=== PATIENT | male | born 1980 | race Caucasian/White ===

== ENCOUNTER 2017-11-25 19:50 | Inpatient (IN) | payer SELFPAY ==
[~2017-11-25 19:50] MED LIST: METHADONE HCL 10 MG TABLET (FOR DETOX USE ONLY) PO ONE
[2017-11-25] MEDS ORDERED: MELATONIN 5 MG TABLETS PO PRN (22:00)
[2017-11-25 22:42] VITALS: BMI 22.3
[2017-11-25] MEDS ORDERED: METHADONE HCL 10 MG TABLET (FOR DETOX USE ONLY) PO ONE ×2 (23:00→23:53)
--- NOTE | 2017-11-25 23:13 | HP ---
COWS - Scale Resting Pulse: 2= [place] 101-120 Sweatin=Flushed/Facial Moisture Restless Observation: 1= Difficult to Sit Still Pupil Size: 1= Pupils >than Normal Bone or Joint Aches: 2= Severe Diffuse Aches Runny Nose/ Eye Tearin= None GI Upset > 30mins: 3= Vomiting/Diarrhea (vomiting x 2, diarrhea x 2) Tremor Observation: 2= Slight Tremor Visible Yawning Observation: 0= None Anxiety or Irritability: 2=Irritable/Anxious Goose Flesh Skin: 0=Smooth Skin COWS Score: 15 Admission [facility] Chief Complaint: Opioid withdrawal symptoms Allergies/Adverse Reactions: Allergies Allergy/AdvReac Type Severity Reaction Status Date / Time No Known Allergies Allergy Verified 11/26/17 01:47 History of Present Illness: 37 years old male with eight years history of heroin and cocaine dependence is seeking admission to detox. Patient has been in previous detox at [facility] which he did not complete. Reports 6 months of sobriety when he was in group home. He has medical history of dermatitis and dehydration. Denies suicidal ideation at this time. Exam Limitations: No Limitations - Ebola screening Have you traveled outside of the country in the last 21 days: No Have you had contact with anyone from an Ebola affected area: No Have you been sick,other than usual withdrawal symptoms: No Do you have a fever: No - Review of Systems Constitutional: Chills, Loss of Appetite, Malaise, Night Sweats, Changes in sleep EENT: reports: Blurred Vision Respiratory: reports: No Symptoms reported Cardiac: reports: No Symptoms Reported GI: reports: Diarrhea, Nausea, Poor Appetite, Poor Fluid Intake, Vomiting, Abdominal cramping : reports: No Symptoms Reported Musculoskeletal: reports: Back Pain Integumentary: reports: Flushing Neuro: reports: Tingling Endocrine: reports: No Symptoms Reported Hematology: reports: No Symptoms Reported Psychiatric: reports: Agitated, Anxious Other Systems: Reviewed and Negative Patient History - Patient Medical History Hx Anemia: No Hx Asthma: No Hx Chronic Obstructive Pulmonary Disease (COPD): No Hx Cancer: No Hx Cardiac Disorders: No Hx Congestive Heart Failure: No Hx Hypertension: No Hx Hypercholesterolemia: No Hx Pacemaker: No HX Cerebrovascular Accident: No Hx Seizures: No Hx Dementia: No Hx Diabetes: No Hx Gastrointestinal Disorders: No Hx Liver Disease: No Hx Genitourinary Disorders: No Hx Sexually Transmitted Disorders: No Hx Renal Disease (ESRD): No Hx Thyroid Disease: No Hx Human Immunodeficiency Virus (HIV): No Hx Hepatitis C: No Hx Depression: Yes (Not on medication) Hx Suicide Attempt: No (Denies suicidal ideation at this time) Hx Bipolar Disorder: No Hx Schizophrenia: No Other Medical History: Dermatitis - Not on medication - Patient Surgical History Past Surgical History: No Hx Neurologic Surgery: No Hx Cataract Extraction: No Hx Cardiac Surgery: No Hx Lung Surgery: No Hx Abdominal Surgery: No Hx Appendectomy: No Hx Cholecystectomy: No Hx Genitourinary Surgery: No Hx Orthopedic Surgery: No - PPD History Previous Implant?: Yes Documented Results: Negative w/o proof Implanted On Prior [facility] Admission?: Yes Date: 05/22/16 PPD to be Administered?: Yes - Reproductive History Patient is a Female of Child Bearing Age (11 -55 yrs old): No (MALE) - Smoking Cessation Smoking history: Current every day smoker Have you smoked in the past 12 months: Yes Aproximately how many cigarettes per day: 20 Hx Chewing Tobacco Use: No Initiated information on smoking cessation: Yes 'Breaking Loose' booklet given: 11/25/17 - Substance & Tx. History Hx Alcohol Use: No Hx Substance Use: Yes Substance Use Type: Cocaine, Heroin Hx Substance Use Treatment: Yes ([facility]) - Substances Abused Heroin Route: Injection Frequency: Daily Amount used: 1 GRAM Age of first use: 30 Date of Last Use: 11/25/17 Cocaine Route: Smoking Frequency: 3-6 times per week Amount used: $40 Age of first use: 14 Date of Last Use: 11/24/17 Family Disease History - Family Disease History Family History: Denies Admission Physical Exam [facility] - Vital Signs Vital Signs: Vital Signs - 24 hr 11/25/17 22:40 Temperature 96.5 F L Pulse Rate 120 H Respiratory 18 Rate Blood Pressure 134/80 - Physical General Appearance: Yes: Moderate Distress, Tremorous, Irritable, Sweating, Anxious HEENTM: Yes: EOMI, Normal ENT Inspection, Normal Voice, ELISA Respiratory: Yes: Lungs Clear, Normal Breath Sounds, No Respiratory Distress Neck: Yes: Supple Breast: Yes: Breast Exam Deferred Cardiology: Yes: Regular Rhythm, Regular Rate, Tachycardia Abdominal: Yes: Normal Bowel Sounds, Soft Genitourinary: Yes: Within Normal Limits Back: Yes: Normal Inspection Neurological: Yes: Alert, Normal Mood/Affect Integumentary: Yes: Dry Lymphatic: Yes: Within Normal Limits - Diagnostic (1) Dehydration Current Visit: Yes Status: Chronic (2) Opioid dependence with withdrawal Current Visit: Yes Status: Chronic (3) Cocaine dependence Current Visit: Yes Status: Chronic Qualifiers: Substance use status: uncomplicated Qualified Code(s): F14.20 - Cocaine dependence, uncomplicated (4) Marijuana dependence Current Visit: Yes Status: Chronic (5) Nicotine dependence Current Visit: Yes Status: Chronic Qualifiers: Nicotine product type: cigarettes Substance use status: uncomplicated Qualified Code(s): F17.210 - Nicotine dependence, cigarettes, uncomplicated (6) Dermatitis Current Visit: Yes Status: Chronic Cleared for Admission S - Detox or Rehab [facility] Level of Care: Medically Managed Detox Regimen/Protocol: Methadone [facility] Breath Alcohol Content Breath Alcohol Content: 0 Urine Drug Screen - Results Drug Screen Negative: No Urine Drug Screen Results: OLLIE-Cocaine, OPI-Opiates
[2017-11-25] MEDS ORDERED: MENTHOL/PHENOL 1 EACH UD MM PRN (23:53)
[2017-11-25] MEDS ORDERED: MAGNESIUM HYDROX 2400MG/30ML ORAL SUSPENSION 30 ML CUP PO PRN (23:53)
[2017-11-25] MEDS ORDERED: ACETAMINOPHEN 325 MG TABLET (FP) PO PRN (23:53)
[2017-11-25] MEDS ORDERED: LOPERAMIDE HCL 2 MG CAPSULE PO PRN (23:53)
[2017-11-25] MEDS ORDERED: guaiFENesin/D-METHORPHAN HB 10 ML UNIT-DOSE CUPS PO PRN (23:53)
[2017-11-25] MEDS ORDERED: MAG HYDROX/AL HYDROX/SIMETH 30 ML UNIT-DOSE CUP PO PRN (23:53)
[2017-11-25] MEDS ORDERED: NICOTINE POLACRILEX 2 MG GUM BC PRN (23:53)
[2017-11-25] MEDS ORDERED: MAGNESIUM CITRATE 300 ML BOTTLE PO PRN (23:53)
[2017-11-25] MEDS ORDERED: IBUPROFEN 400 MG TABLET (FP) PO PRN (23:53)
[2017-11-25] MEDS ORDERED: P-EPHED 60MG/TRIPROLIDI 2.5MG TABLET PO PRN (23:53)
[2017-11-26] MEDS ORDERED: diazePAM 5 MG TABLET PO PRN (01:13)
[2017-11-26] MEDS ORDERED: METHADONE HCL 10 MG TABLET (FOR DETOX USE ONLY) PO ONE ×4 (01:13→23:00)
[2017-11-26] MEDS: diazePAM 5 MG TABLET PO PRN ×2 (01:40→10:27)
[2017-11-26 10:24] LABS: CHLORIDE 105 mmol/L (98-107); POTASSIUM 3.5 mmol/L (3.5-5.1); SODIUM 140 mmol/L (136-145)
[2017-11-26] MEDS: PRENATAL VITAMINS W/ FOLIC ACID TABLET (FP) PO SCH (10:27)
[2017-11-26] MEDS: NICOTINE 14 MG/24 HOURS TOPICAL PATCH TD SCH (10:28)
[2017-11-26 10:30] LABS: HEMATOCRIT 33.4 % (35.4-49); HEMOGLOBIN 11.3 GM/dL (11.7-16.9); MCH 29.2 pg (25.7-33.7); MCHC 33.9 g/dl (32.0-35.9); MEAN PLT VOLUME 7.8 fl (7.5-11.1); PLATELET COUNT 295 K/MM3 (134-434); RBC 3.89 M/mm3 (4.00-5.60); WHITE BLOOD COUNT 8.5 K/mm3 (4.0-10.0)
[2017-11-26 10:43] LABS: ALBUMIN 3.2 g/dl (3.4-5.0); ALK PHOS 55 U/L (45-117); ANION GAP 9 (8-16); BILIRUBIN,TOTAL 0.3 mg/dL (0.2-1.0); BLOOD UREA NITROGEN 9 mg/dL (7-18); CALCIUM 9.3 mg/dL (8.5-10.1); CO2 26 mmol/L (21-32); CREATININE 1.2 mg/dL (0.7-1.3); GLUCOSE,RANDOM 85 mg/dL (74-106); SGOT/AST 11 U/L (15-37); SGPT/ALT 14 U/L (12-78); TOT PROT 6.1 g/dl (6.4-8.2)
--- NOTE | 2017-11-26 10:53 | EKG ---
Test Reason : Blood Pressure : / mmHG Vent. Rate : 096 BPM Atrial Rate : 096 BPM P-R Int : 120 ms QRS Dur : 092 ms QT Int : 324 ms P-R-T Axes : 052 067 048 degrees QTc Int : 409 ms NORMAL SINUS RHYTHM NORMAL ECG NO PREVIOUS ECGS AVAILABLE Confirmed by JOLANTA MICHAEL, JAIRO ([id number]) on 11/26/2017 10:53:02 AM Referred By: Confirmed By:JAIRO STOVER MD
--- NOTE | 2017-11-26 12:32 | PN ---
BHS COWS - Scale Resting Pulse: 1= [place] 81-100 Sweatin= Chills/Flushing Restless Observation: 1= Difficult to Sit Still Pupil Size: 0= Normal to Room Light Bone or Joint Aches: 2= Severe Diffuse Aches Runny Nose/ Eye Tearin= None GI Upset > 30mins: 2= Nausea/Diarrhea Tremor Observation of Outstretched Hands: 0= None Yawning Observation: 2= >3x During Session Anxiety or Irritability: 2=Irritable/Anxious Goose Flesh Skin: 3=Piloerection COWS Score: 14 BHS Progress Note (SOAP) Subjective: Sweating, Body Aches, Fatigue, Anxious. Objective: PATIENT A & O X 3, OBSERVED AMBULATING ON UNIT. NO ACUTE DISTRESS. 11/26/17 12:30 Vital Signs Temperature 97.5 F L 11/26/17 09:23 Pulse Rate 70 11/26/17 09:23 Respiratory Rate 18 11/26/17 09:23 Blood Pressure 91/55 11/26/17 09:23 O2 Sat by Pulse Oximetry (%) Laboratory Tests 11/26/17 11/26/17 11/26/17 07:30 07:30 07:30 WBC 8.5 RBC 3.89 L Hgb 11.3 L D Hct 33.4 L MCV 86.0 MCH 29.2 MCHC 33.9 RDW 14.0 Plt Count 295 MPV 7.8 D Sodium 140 Potassium 3.5 Chloride 105 Carbon Dioxide 26 Anion Gap 9 BUN 9 Creatinine 1.2 D Creat Clearance w eGFR > 60 Random Glucose 85 D Calcium 9.3 Total Bilirubin 0.3 D AST 11 L D ALT 14 D Alkaline Phosphatase 55 D Total Protein 6.1 L Albumin 3.2 L RPR Titer Nonreactive HIV 1&2 Antibody Screen HIV P24 Antigen 11/26/17 07:30 WBC RBC Hgb Hct MCV MCH MCHC RDW Plt Count MPV Sodium Potassium Chloride Carbon Dioxide Anion Gap BUN Creatinine Creat Clearance w eGFR Random Glucose Calcium Total Bilirubin AST ALT Alkaline Phosphatase Total Protein Albumin RPR Titer HIV 1&2 Antibody Screen Negative HIV P24 Antigen Negative LABS NOTED. UA RESULTS PENDING. 11/26/17 12:32 Assessment: 11/26/17 12:31 WITHDRAWAL SYMPTOMS. Plan: CONTINUE DETOX.
[2017-11-26] MEDS: THIAMINE HCL 100 MG TABLET (FP) PO SCH (22:37)
[2017-11-27] MEDS ORDERED: METHADONE HCL 10 MG TABLET (FOR DETOX USE ONLY) PO ONE (10:00)
[2017-11-27] MEDS ORDERED: METHADONE HCL 5 MG TABLET (FOR DETOX USE ONLY) PO ONE (10:00)
[2017-11-27] MEDS: NICOTINE 14 MG/24 HOURS TOPICAL PATCH TD SCH (10:19)
[2017-11-27] MEDS: PRENATAL VITAMINS W/ FOLIC ACID TABLET (FP) PO SCH (10:20)
[2017-11-27 14:17] LABS: URINE APPEARANCE CLEAR; URINE BILIRUBIN NEGATIVE (<2.0 mg/dL); URINE BLOOD NEGATIVE (NEGATIVE); URINE COLOR COLORLESS; URINE GLUCOSE (UA) NEGATIVE (NEGATIVE); URINE KETONE NEGATIVE (NEGATIVE); URINE LEUK ESTERASE NEGATIVE (NEGATIVE); URINE NITRITE NEGATIVE (NEGATIVE); URINE PROTEIN NEGATIVE (NEGATIVE); URINE UROBILINOGEN NEGATIVE mg/dL (0.2-1.0)
--- NOTE | 2017-11-27 17:00 | PN ---
BHS COWS - Scale Resting Pulse: 1= [place] 81-100 Sweatin= Chills/Flushing Restless Observation: 1= Difficult to Sit Still Pupil Size: 0= Normal to Room Light Bone or Joint Aches: 0= None Runny Nose/ Eye Tearin= Nasal Congestion GI Upset > 30mins: 2= Nausea/Diarrhea Tremor Observation of Outstretched Hands: 2= Slight Tremor Visible Yawning Observation: 1= 1-2x During Session Anxiety or Irritability: 2=Irritable/Anxious Goose Flesh Skin: 3=Piloerection COWS Score: 14 BHS Progress Note (SOAP) Subjective: Anxious, Tremors, Fatigue, Diarrhea. Objective: PATIENT A & O X 3. NO ACUTE DISTRESS. 11/27/17 16:58 Vital Signs Temperature 97.8 F 11/27/17 13:29 Pulse Rate 95 H 11/27/17 13:29 Respiratory Rate 20 11/27/17 13:29 Blood Pressure 119/64 11/27/17 13:29 O2 Sat by Pulse Oximetry (%) Laboratory Tests 11/26/17 11/26/17 11/26/17 07:30 07:30 07:30 WBC 8.5 RBC 3.89 L Hgb 11.3 L D Hct 33.4 L MCV 86.0 MCH 29.2 MCHC 33.9 RDW 14.0 Plt Count 295 MPV 7.8 D Sodium 140 Potassium 3.5 Chloride 105 Carbon Dioxide 26 Anion Gap 9 BUN 9 Creatinine 1.2 D Creat Clearance w eGFR > 60 Random Glucose 85 D Calcium 9.3 Total Bilirubin 0.3 D AST 11 L D ALT 14 D Alkaline Phosphatase 55 D Total Protein 6.1 L Albumin 3.2 L Urine Color Urine Appearance Urine pH Ur Specific [place] Urine Protein Urine Glucose (UA) Urine Ketones Urine Blood Urine Nitrite Urine Bilirubin Urine Urobilinogen Ur Leukocyte Esterase RPR Titer Nonreactive HIV 1&2 Antibody Screen HIV P24 Antigen 11/26/17 11/27/17 07:30 10:15 WBC RBC Hgb Hct MCV MCH MCHC RDW Plt Count MPV Sodium Potassium Chloride Carbon Dioxide Anion Gap BUN Creatinine Creat Clearance w eGFR Random Glucose Calcium Total Bilirubin AST ALT Alkaline Phosphatase Total Protein Albumin Urine Color Colorless Urine Appearance Clear Urine pH 5.0 D Ur Specific [place] 1.003 Urine Protein Negative Urine Glucose (UA) Negative Urine Ketones Negative Urine Blood Negative Urine Nitrite Negative Urine Bilirubin Negative Urine Urobilinogen Negative Ur Leukocyte Esterase Negative RPR Titer HIV 1&2 Antibody Screen Negative HIV P24 Antigen Negative LABS NOTED. Assessment: 11/27/17 16:59 WITHDRAWAL SYMPTOMS. Plan: CONTINUE DETOX.
[2017-11-27] MEDS: THIAMINE HCL 100 MG TABLET (FP) PO SCH (22:29)
[2017-11-28] MEDS ORDERED: METHADONE HCL 5 MG TABLET (FOR DETOX USE ONLY) PO ONE ×2 (10:00)
[2017-11-28] MEDS ORDERED: METHADONE HCL 10 MG TABLET (FOR DETOX USE ONLY) PO ONE (10:00)
[2017-11-28] MEDS: NICOTINE 14 MG/24 HOURS TOPICAL PATCH TD SCH (10:19)
[2017-11-28] MEDS: PRENATAL VITAMINS W/ FOLIC ACID TABLET (FP) PO SCH (10:19)
--- NOTE | 2017-11-28 13:11 | PN ---
BHS Progress Note (SOAP) Subjective: Fatigue, Sweating. Objective: PATIENT A & O X 3, OBSERVED AMBULATING ON UNIT. NO ACUTE DISTRESS. 11/28/17 13:06 Vital Signs Temperature 97.0 F L 11/28/17 09:18 Pulse Rate 80 11/28/17 09:18 Respiratory Rate 18 11/28/17 09:18 Blood Pressure 116/69 11/28/17 09:18 O2 Sat by Pulse Oximetry (%) Laboratory Tests 11/26/17 11/26/17 11/26/17 07:30 07:30 07:30 WBC 8.5 RBC 3.89 L Hgb 11.3 L D Hct 33.4 L MCV 86.0 MCH 29.2 MCHC 33.9 RDW 14.0 Plt Count 295 MPV 7.8 D Sodium 140 Potassium 3.5 Chloride 105 Carbon Dioxide 26 Anion Gap 9 BUN 9 Creatinine 1.2 D Creat Clearance w eGFR > 60 Random Glucose 85 D Calcium 9.3 Total Bilirubin 0.3 D AST 11 L D ALT 14 D Alkaline Phosphatase 55 D Total Protein 6.1 L Albumin 3.2 L Urine Color Urine Appearance Urine pH Ur Specific [place] Urine Protein Urine Glucose (UA) Urine Ketones Urine Blood Urine Nitrite Urine Bilirubin Urine Urobilinogen Ur Leukocyte Esterase RPR Titer Nonreactive HIV 1&2 Antibody Screen HIV P24 Antigen 11/26/17 11/27/17 07:30 10:15 WBC RBC Hgb Hct MCV MCH MCHC RDW Plt Count MPV Sodium Potassium Chloride Carbon Dioxide Anion Gap BUN Creatinine Creat Clearance w eGFR Random Glucose Calcium Total Bilirubin AST ALT Alkaline Phosphatase Total Protein Albumin Urine Color Colorless Urine Appearance Clear Urine pH 5.0 D Ur Specific [place] 1.003 Urine Protein Negative Urine Glucose (UA) Negative Urine Ketones Negative Urine Blood Negative Urine Nitrite Negative Urine Bilirubin Negative Urine Urobilinogen Negative Ur Leukocyte Esterase Negative RPR Titer HIV 1&2 Antibody Screen Negative HIV P24 Antigen Negative LABS NOTED. Assessment: 11/28/17 13:07 WITHDRAWAL SYMPTOMS. Plan: CONTINUE DETOX. PATIENT REPORTS THAT CURRENT DETOX SYMPTOMS ARE MINIMAL AND THAT HE IS FEELING WELL OVERALL. AT PATIENT'S REQUEST, CURRENT DETOX MEDICATION REGIMEN MODIFIED SO THAT PATIENT MAY BE DISCHARGED FROM DETOX UNIT TOMORROW, 11/29/2017.
[2017-11-28] MEDS: THIAMINE HCL 100 MG TABLET (FP) PO SCH (23:58)
[2017-11-29] MEDS ORDERED: METHADONE HCL 5 MG TABLET (FOR DETOX USE ONLY) PO ONE ×2 (06:00→10:00)
[2017-11-29 06:04] VITALS: BP 121/77; PULSE 88; TEMP 97.5
[2017-11-29] MEDS ORDERED: METHADONE HCL 10 MG TABLET (FOR DETOX USE ONLY) PO ONE (10:00)
--- NOTE | 2017-11-29 18:04 | PN ---
BHS Progress Note (SOAP) Subjective: Patient denies any current Detox symptoms and reports that he is feeling well overall. Objective: PATIENT A & O X 3, OBSERVED AMBULATING ON UNIT. NO ACUTE DISTRESS. 11/29/17 18:02 Vital Signs Temperature 97.5 F L 11/29/17 06:03 Pulse Rate 88 11/29/17 06:03 Respiratory Rate 18 11/29/17 06:03 Blood Pressure 121/77 11/29/17 06:03 O2 Sat by Pulse Oximetry (%) Laboratory Tests 11/26/17 11/26/17 11/26/17 07:30 07:30 07:30 WBC 8.5 RBC 3.89 L Hgb 11.3 L D Hct 33.4 L MCV 86.0 MCH 29.2 MCHC 33.9 RDW 14.0 Plt Count 295 MPV 7.8 D Sodium 140 Potassium 3.5 Chloride 105 Carbon Dioxide 26 Anion Gap 9 BUN 9 Creatinine 1.2 D Creat Clearance w eGFR > 60 Random Glucose 85 D Calcium 9.3 Total Bilirubin 0.3 D AST 11 L D ALT 14 D Alkaline Phosphatase 55 D Total Protein 6.1 L Albumin 3.2 L Urine Color Urine Appearance Urine pH Ur Specific [place] Urine Protein Urine Glucose (UA) Urine Ketones Urine Blood Urine Nitrite Urine Bilirubin Urine Urobilinogen Ur Leukocyte Esterase RPR Titer Nonreactive HIV 1&2 Antibody Screen HIV P24 Antigen 11/26/17 11/27/17 07:30 10:15 WBC RBC Hgb Hct MCV MCH MCHC RDW Plt Count MPV Sodium Potassium Chloride Carbon Dioxide Anion Gap BUN Creatinine Creat Clearance w eGFR Random Glucose Calcium Total Bilirubin AST ALT Alkaline Phosphatase Total Protein Albumin Urine Color Colorless Urine Appearance Clear Urine pH 5.0 D Ur Specific [place] 1.003 Urine Protein Negative Urine Glucose (UA) Negative Urine Ketones Negative Urine Blood Negative Urine Nitrite Negative Urine Bilirubin Negative Urine Urobilinogen Negative Ur Leukocyte Esterase Negative RPR Titer HIV 1&2 Antibody Screen Negative HIV P24 Antigen Negative LABS NOTED. Assessment: 11/29/17 18:03 COMPLETION OF DETOX REGIMEN. Plan: PATIENT SCHEDULED FOR DISCHARGE FROM DETOX TODAY.
--- NOTE | 2017-11-29 18:07 | DS ---
[facility] Detox Discharge Summary Admission Date: 11/25/17 Discharge Date: 11/29/17 - History Present History: Cannabis Dependence, Cocaine Dependence, Opioid Dependence Additional Comments: PATIENT GOING HOME. PATIENT ADVISED TO CONSIDER LOCAL 12-STEP / NA OUTPATIENT SUPPORT GROUPS FOR AFTERCARE. PATIENT WAS DISCHARGED FROM DETOX UNIT NI STABLE MEDICAL CONDITION. Pertinent Past History: Depression, Dehydration, Dermatitis, Nicotine Dependence. - Physical Exam Results Vital Signs: Vital Signs Temperature 97.5 F L 11/29/17 06:03 Pulse Rate 88 11/29/17 06:03 Respiratory Rate 18 11/29/17 06:03 Blood Pressure 121/77 11/29/17 06:03 O2 Sat by Pulse Oximetry (%) Pertinent Admission Physical Exam Findings: WITHDRAWAL SYMPTOMS. Laboratory Tests 11/26/17 11/26/17 11/26/17 07:30 07:30 07:30 WBC 8.5 RBC 3.89 L Hgb 11.3 L D Hct 33.4 L MCV 86.0 MCH 29.2 MCHC 33.9 RDW 14.0 Plt Count 295 MPV 7.8 D Sodium 140 Potassium 3.5 Chloride 105 Carbon Dioxide 26 Anion Gap 9 BUN 9 Creatinine 1.2 D Creat Clearance w eGFR > 60 Random Glucose 85 D Calcium 9.3 Total Bilirubin 0.3 D AST 11 L D ALT 14 D Alkaline Phosphatase 55 D Total Protein 6.1 L Albumin 3.2 L Urine Color Urine Appearance Urine pH Ur Specific [place] Urine Protein Urine Glucose (UA) Urine Ketones Urine Blood Urine Nitrite Urine Bilirubin Urine Urobilinogen Ur Leukocyte Esterase RPR Titer Nonreactive HIV 1&2 Antibody Screen HIV P24 Antigen 11/26/17 11/27/17 07:30 10:15 WBC RBC Hgb Hct MCV MCH MCHC RDW Plt Count MPV Sodium Potassium Chloride Carbon Dioxide Anion Gap BUN Creatinine Creat Clearance w eGFR Random Glucose Calcium Total Bilirubin AST ALT Alkaline Phosphatase Total Protein Albumin Urine Color Colorless Urine Appearance Clear Urine pH 5.0 D Ur Specific [place] 1.003 Urine Protein Negative Urine Glucose (UA) Negative Urine Ketones Negative Urine Blood Negative Urine Nitrite Negative Urine Bilirubin Negative Urine Urobilinogen Negative Ur Leukocyte Esterase Negative RPR Titer HIV 1&2 Antibody Screen Negative HIV P24 Antigen Negative LABS NOTED. - Treatment Hospital Course: Detox Protocol Followed, Detoxed Safely, Responded well, Discharged Condition Good Patient has Accepted a Rehab Referral to: PT. GOING HOME, ADVISED TO CONSIDER LOCAL 12-STEP/NA SUPPORT GROUPS. - Medication Discharge Medications: Ambulatory Orders NK [No Known Home Medication] 05/20/16 - Diagnosis (1) Cocaine dependence Status: Chronic Qualifiers: Substance use status: uncomplicated Qualified Code(s): F14.20 - Cocaine dependence, uncomplicated (2) Dehydration Status: Chronic (3) Dermatitis Status: Chronic (4) Marijuana dependence Status: Chronic (5) Nicotine dependence Status: Chronic Qualifiers: Nicotine product type: cigarettes Substance use status: uncomplicated Qualified Code(s): F17.210 - Nicotine dependence, cigarettes, uncomplicated (6) Opioid dependence with withdrawal Status: Chronic - AMA Did Patient Leave Against Medical Advice: No
[2017-11-30] MEDS ORDERED: METHADONE HCL 5 MG TABLET (FOR DETOX USE ONLY) PO ONE (06:00)
[2017-11-30] MEDS ORDERED: METHADONE HCL 10 MG TABLET (FOR DETOX USE ONLY) PO ONE (10:00)
[2017-12-01] MEDS ORDERED: METHADONE HCL 5 MG TABLET (FOR DETOX USE ONLY) PO ONE (06:00)
== END 2017-11-29 07:20 | disposition home or self-care (01) | DRG 773 ==
LOC: YASAS 19:50 → Y3N 23:30
PROVIDERS: ADMIT Internal Medicine; ATTEND Internal Medicine
PROC: HZ2ZZZZ Detoxification Services for Substance Abuse Treatment (ICD-10-PCS; principal; 2017-11-25)
DX: F11.23 Opioid dependence with withdrawal (principal); F14.20 Cocaine dependence, uncomplicated; F12.20 Cannabis dependence, uncomplicated; F17.210 Nicotine dependence, cigarettes, uncomplicated; F32.9 Major depressive disorder, single episode, unspecified; E86.0 Dehydration; L30.9 Dermatitis, unspecified
CPT/HCPCS: 36415; 80053; 81003; 85027; 86593; 87389; 93005; 93010

== ENCOUNTER 2018-04-06 20:31 | Inpatient (IN) | payer OTHER ==
[2018-04-06 22:01] VITALS: BMI 24.0
--- NOTE | 2018-04-06 23:55 | HP ---
COWS - Scale Resting Pulse: 1= [place] 81-100 Sweatin= Chills/Flushing Restless Observation: 5= Unable to Sit Still Pupil Size: 0= Normal to Room Light Bone or Joint Aches: 4=Acute Joint/Muscle Pain Runny Nose/ Eye Tearin= None GI Upset > 30mins: 2= Nausea/Diarrhea Tremor Observation: 2= Slight Tremor Visible Yawning Observation: 0= None Anxiety or Irritability: 2=Irritable/Anxious Goose Flesh Skin: 0=Smooth Skin COWS Score: 17 Admission [facility] - HPI Chief Complaint: SEEKING DETOX FOR C/O WITHDRAWAL SX'S FROM HEROIN Allergies/Adverse Reactions: Allergies Allergy/AdvReac Type Severity Reaction Status Date / Time No Known Allergies Allergy Verified 02/23/18 15:48 History of Present Illness: 37 Y.O. MALE WITH LONG HX/O OPIOID DEPENDENCE HERE FOR DETOX. CLIENT IS KNOWN TO THIS PROGRAM. LAST HERE 01/2018. SELF REFERRED. REPORTS CLEAN TIME 1 YEAR WHILE INCARCERATED. UTOX + BZO, OXY DENIES USE STATES CUT WITH HEROIN. DENIES HX /O OVERDOSE, SEIZURES, AVH, SI/HI Exam Limitations: No Limitations - Ebola screening Have you traveled outside of the country in the last 21 days: No Have you had contact with anyone from an Ebola affected area: No Have you been sick,other than usual withdrawal symptoms: No Do you have a fever: No - Review of Systems Constitutional: Chills, Loss of Appetite, Malaise, Night Sweats, Changes in sleep, Unintentional Wgt. Loss EENT: reports: No Symptoms Reported Respiratory: reports: No Symptoms reported Cardiac: reports: No Symptoms Reported GI: reports: Diarrhea, Nausea, Poor Appetite : reports: No Symptoms Reported Musculoskeletal: reports: Back Pain Integumentary: reports: Other (PICKING OF THE SKIN WITH OPEN AREAS NOTED TO FACE AND NECK) Neuro: reports: No Symptoms reported Endocrine: reports: No Symptoms Reported Hematology: reports: No Symptoms Reported Psychiatric: reports: No Sypmtoms Reported Other Systems: Reviewed and Negative Patient History - Patient Medical History Hx Anemia: No Hx Asthma: No Hx Chronic Obstructive Pulmonary Disease (COPD): No Hx Cancer: No Hx Cardiac Disorders: No Hx Congestive Heart Failure: No Hx Hypertension: No Hx Hypercholesterolemia: No Hx Pacemaker: No HX Cerebrovascular Accident: No Hx Seizures: No Hx Dementia: No Hx Diabetes: No Hx Gastrointestinal Disorders: No Hx Liver Disease: No Hx Genitourinary Disorders: No Hx Sexually Transmitted Disorders: No Hx Renal Disease (ESRD): No Hx Thyroid Disease: No Hx Human Immunodeficiency Virus (HIV): No Hx Hepatitis C: No Hx Depression: No Hx Suicide Attempt: No Hx Bipolar Disorder: No Hx Schizophrenia: No Other Medical History: DENIES - Patient Surgical History Past Surgical History: No Hx Neurologic Surgery: No Hx Cataract Extraction: No Hx Cardiac Surgery: No Hx Lung Surgery: No Hx Breast Surgery: No Hx Breast Biopsy: No Hx Abdominal Surgery: No Hx Appendectomy: No Hx Cholecystectomy: No Hx Genitourinary Surgery: No Hx Section: No Hx Orthopedic Surgery: No - PPD History Previous Implant?: Yes Documented Results: Negative w/proof Implanted On Prior [facility] Admission?: Yes Date: 11/28/17 Results: 0 mm PPD to be Administered?: No - Smoking Cessation Smoking history: Current every day smoker Have you smoked in the past 12 months: Yes Aproximately how many cigarettes per day: 20 Cigars Per Day: 0 Hx Chewing Tobacco Use: No Initiated information on smoking cessation: Yes 'Breaking Loose' booklet given: 04/06/18 - Substance & Tx. History Hx Alcohol Use: No Hx Substance Use: Yes Substance Use Type: Cocaine, Heroin, Marijuana Hx Substance Use Treatment: Yes ([facility]) - Substances Abused Heroin Route: Injection Frequency: Daily Amount used: 1 bundle Age of first use: 29 Date of Last Use: 04/06/18 Cocaine Route: Inhalation Frequency: Daily Amount used: 1/2 gram Age of first use: 13 Date of Last Use: 04/06/18 Family Disease History - Family Disease History Family History: Denies Admission Physical Exam S - Vital Signs Vital Signs: Vital Signs - 24 hr 04/06/18 22:00 Temperature 98.1 F Pulse Rate 95 H Respiratory 18 Rate Blood Pressure 136/99 - Physical General Appearance: Yes: Appropriately Dressed, Mild Distress, Irritable, Sweating, Anxious HEENTM: Yes: EOMI, Normocephalic, Normal Voice, ELISA, Pharynx Normal, Other ( DISCOLORED TEETH) Respiratory: Yes: Chest Non-Tender, Lungs Clear, Normal Breath Sounds, No Respiratory Distress, No Accessory Muscle Use Neck: Yes: No masses,lesions,Nodules, Supple, Trachea in good position Breast: Yes: Breast Exam Deferred Cardiology: Yes: Regular Rhythm, Regular Rate, S1, S2 Abdominal: Yes: Soft, Protuberent Genitourinary: Yes: Other (NO COMPLAINTS) Back: Yes: Normal Inspection Musculoskeletal: Yes: full range of Motion, Gait Steady Extremities: Yes: Normal Capillary Refill, Normal Range of Motion Neurological: Yes: zmt operator II-XII NML intact, Fully Oriented, Alert, Motor Strength 5/5, Depressed Affect Integumentary: Yes: Warm, Track [place], Other (FORMICATION TO FACE AND NECK WITH OPEN AREAS) Lymphatic: Yes: Within Normal Limits - Diagnostic (1) Cannabis abuse, uncomplicated Current Visit: Yes Status: Chronic (2) Formication Current Visit: Yes Status: Acute (3) Substance induced mood disorder Current Visit: Yes Status: Suspected (4) Nicotine dependence Current Visit: Yes Status: Chronic Qualifiers: Nicotine product type: cigarettes Substance use status: in withdrawal Qualified Code(s): F17.213 - Nicotine dependence, cigarettes, with withdrawal (5) Opioid dependence with withdrawal Current Visit: Yes Status: Acute (6) Cocaine dependence Current Visit: Yes Status: Chronic Qualifiers: Substance use status: uncomplicated Qualified Code(s): F14.20 - Cocaine dependence, uncomplicated Cleared for Admission [facility] - Detox or Rehab [facility] Level of Care: Medically Managed Detox Regimen/Protocol: Methadone Claeared for Rehab Admission: No [facility] Breath Alcohol Content Breath Alcohol Content: 0 Urine Drug Screen - Results Drug Screen Negative: No Urine Drug Screen Results: THC-Marijuana, OLLIE-Cocaine, OPI-Opiates, PCP- Phencyclidine, BZO-Benzodiazepines, OXY-Oxycodone
[2018-04-07] MEDS ORDERED: P-EPHED 60MG/TRIPROLIDI 2.5MG TABLET PO PRN (00:03)
[2018-04-07] MEDS ORDERED: MAG HYDROX/AL HYDROX/SIMETH 30 ML UNIT-DOSE CUP PO PRN (00:03)
[2018-04-07] MEDS ORDERED: NICOTINE POLACRILEX 2 MG GUM BC PRN (00:03)
[2018-04-07] MEDS ORDERED: MAGNESIUM CITRATE 300 ML BOTTLE PO PRN (00:03)
[2018-04-07] MEDS ORDERED: IBUPROFEN 400 MG TABLET (FP) PO PRN (00:03)
[2018-04-07] MEDS ORDERED: LOPERAMIDE HCL 2 MG CAPSULE PO PRN (00:03)
[2018-04-07] MEDS ORDERED: METHADONE HCL 10 MG TABLET (FOR DETOX USE ONLY) PO ONE ×3 (00:03→23:00)
[2018-04-07] MEDS ORDERED: MENTHOL/PHENOL 1 EACH UD MM PRN (00:03)
[2018-04-07] MEDS ORDERED: ACETAMINOPHEN 325 MG TABLET (FP) PO PRN (00:03)
[2018-04-07] MEDS ORDERED: diazePAM 5 MG TABLET PO PRN (00:03)
[2018-04-07] MEDS ORDERED: guaiFENesin/D-METHORPHAN HB 10 ML UNIT-DOSE CUPS PO PRN (00:03)
[2018-04-07] MEDS ORDERED: MAGNESIUM HYDROX 2400MG/30ML ORAL SUSPENSION 30 ML CUP PO PRN (00:03)
[2018-04-07 11:05] LABS: HEMATOCRIT 34.9 % (35.4-49); HEMOGLOBIN 11.8 GM/dL (11.7-16.9); MCH 28.8 pg (25.7-33.7); MCHC 33.9 g/dl (32.0-35.9); MEAN PLT VOLUME 8.4 fl (7.5-11.1); PLATELET COUNT 271 K/MM3 (134-434); RDW 14.4 % (11.9-15.9); WHITE BLOOD COUNT 9.1 K/mm3 (4.0-10.0)
[2018-04-07 11:18] LABS: CHLORIDE 102 mmol/L (98-107); POTASSIUM 4.3 mmol/L (3.5-5.1); SODIUM 137 mmol/L (136-145)
[2018-04-07 11:27] LABS: ALBUMIN 3.4 g/dl (3.4-5.0); ALK PHOS 82 U/L (45-117); ANION GAP 7 (8-16); BILIRUBIN,TOTAL 0.2 mg/dL (0.2-1.0); BLOOD UREA NITROGEN 18 mg/dL (7-18); CALCIUM 9.8 mg/dL (8.5-10.1); CO2 28 mmol/L (21-32); CREATININE 1.1 mg/dL (0.7-1.3); GLUCOSE,RANDOM 94 mg/dL (74-106); SGOT/AST 12 U/L (15-37); SGPT/ALT 17 U/L (12-78); TOT PROT 6.6 g/dl (6.4-8.2)
[2018-04-07] MEDS: NICOTINE 21 MG/24 HOURS TOPICAL PATCH TD SCH (12:51)
[2018-04-07] MEDS: PRENATAL VITAMINS W/ FOLIC ACID TABLET (FP) PO SCH (12:52)
--- NOTE | 2018-04-07 13:16 | PN ---
S COWS - Scale Resting Pulse: 0= [place] 80 or Below Sweatin= Chills/Flushing Restless Observation: 3= Extraneous Movement Pupil Size: 1= Pupils >than Normal Bone or Joint Aches: 2= Severe Diffuse Aches Runny Nose/ Eye Tearin= Runny Nose/Eyes GI Upset > 30mins: 2= Nausea/Diarrhea Tremor Observation of Outstretched Hands: 2= Slight Tremor Visible Yawning Observation: 1= 1-2x During Session Anxiety or Irritability: 2=Irritable/Anxious Goose Flesh Skin: 0=Smooth Skin COWS Score: 16 S Progress Note (SOAP) Subjective: alert,irritable,anxious,interrupted sleep,tremor,pain in the body and back Objective: 04/07/18 13:13 Vital Signs Temperature 97.7 F 04/07/18 11:19 Pulse Rate 80 04/07/18 11:19 Respiratory Rate 20 04/07/18 11:19 Blood Pressure 112/65 04/07/18 11:19 O2 Sat by Pulse Oximetry (%) ekg nsr qt/qtc 358/397 Laboratory Last Values WBC 9.1 K/mm3 (4.0-10.0) 04/07/18 07:00 RBC 4.10 M/mm3 (4.00-5.60) 04/07/18 07:00 Hgb 11.8 GM/dL (11.7-16.9) 04/07/18 07:00 Hct 34.9 % (35.4-49) L 04/07/18 07:00 MCV 85.0 fl (80-96) 04/07/18 07:00 MCH 28.8 pg (25.7-33.7) 04/07/18 07:00 MCHC 33.9 g/dl (32.0-35.9) 04/07/18 07:00 RDW 14.4 % (11.9-15.9) 04/07/18 07:00 Plt Count 271 K/MM3 (134-434) 04/07/18 07:00 MPV 8.4 fl (7.5-11.1) 04/07/18 07:00 Sodium 137 mmol/L (136-145) 04/07/18 07:00 Potassium 4.3 mmol/L (3.5-5.1) 04/07/18 07:00 Chloride 102 mmol/L (98-107) 04/07/18 07:00 Carbon Dioxide 28 mmol/L (21-32) 04/07/18 07:00 Anion Gap 7 (8-16) L 04/07/18 07:00 BUN 18 mg/dL (7-18) 04/07/18 07:00 Creatinine 1.1 mg/dL (0.7-1.3) 04/07/18 07:00 Creat Clearance w eGFR > 60 (>60) 04/07/18 07:00 Random Glucose 94 mg/dL (74-106) 04/07/18 07:00 Calcium 9.8 mg/dL (8.5-10.1) 04/07/18 07:00 Total Bilirubin 0.2 mg/dL (0.2-1.0) 04/07/18 07:00 AST 12 U/L (15-37) L D 04/07/18 07:00 ALT 17 U/L (12-78) 04/07/18 07:00 Alkaline Phosphatase 82 U/L (45-117) 04/07/18 07:00 Total Protein 6.6 g/dl (6.4-8.2) 04/07/18 07:00 Albumin 3.4 g/dl (3.4-5.0) 04/07/18 07:00 HIV 1&2 Antibody Screen Negative 04/07/18 07:00 HIV P24 Antigen Negative 04/07/18 07:00 04/07/18 13:15 rpr pending Assessment: 04/07/18 13:15 withdrawal symptom Plan: continue detox
[2018-04-07] MEDS ORDERED: CYCLOBENZAPRINE HCL 10 MG TABLET (FP) PO PRN (13:17)
--- NOTE | 2018-04-07 16:29 | EKG ---
Test Reason : Blood Pressure : / mmHG Vent. Rate : 074 BPM Atrial Rate : 074 BPM P-R Int : 120 ms QRS Dur : 092 ms QT Int : 358 ms P-R-T Axes : 055 069 052 degrees QTc Int : 397 ms NORMAL SINUS RHYTHM NORMAL ECG WHEN COMPARED WITH ECG OF 23-FEB-2018 17:47, NO SIGNIFICANT CHANGE WAS FOUND Confirmed by Nikita Nelson MD ([id number]) on 04/07/2018 4:28:41 PM Referred By: Amalia Crowe Confirmed By:Nikita Nelson MD
[2018-04-07] MEDS ORDERED: MELATONIN 5 MG TABLETS PO PRN (22:00)
[2018-04-07] MEDS: THIAMINE HCL 100 MG TABLET (FP) PO SCH (22:25)
[2018-04-07] MEDS: cloNIDine HCL 0.1 MG TABLET PO SCH (22:25)
--- NOTE | 2018-04-08 09:48 | CONSULT ---
[facility] Psychiatric Consult - Data Date of interview: 04/08/18 Admission source: [facility] Identifying data: This is 37 years old male , single, father of one, living with family, wth no income, with no psychiatric hospitalization history, with long history of Opioids, Cocaine, Alcohol, currently positive for PCP, Cannabisas well. Patient reports Alcohol withdrawal symptoms and seeking for detox. Substance Abuse History: Urine Drug Screen Results: THC-Marijuana, OLLIE-Cocaine, OPI-Opiates, PCP-Phencyclidine, BZO-Benzodiazepines, OXY-Oxycodone- Smoking Cessation. Smoking history: Current every day smoker. Have you smoked in the past 12 months: Yes. Aproximately how many cigarettes per day: 20. Cigars Per Day: 0. Hx Chewing Tobacco Use: No. Initiated information on smoking cessation : Yes. 'Breaking Loose' booklet given: 04/06/18. - Substance & Tx. History. Hx Alcohol Use: No. Hx Substance Use: Yes. Substance Use Type: Cocaine, Heroin , Marijuana. Hx Substance Use Treatment: Yes ([facility]). - Substances Abused. Heroin. Route: Injection. Frequency: Daily. Amount used: 1 bundle. Age of first use: 29. Date of Last Use: 04/06/18. Cocaine. Route: Inhalation. Frequency: Daily. Amount used: 1/2 gram. Age of first use: 13. Date of Last Use: 04/06/18 Medical History: GERD, Formication history Psychiatric History: Patient reports no psychiatric hospitalization history, no medicvations taking prior to admission. Physical/Sexual Abuse/Trauma History: Denies Additional Comment: Urine Drug Screen Results: THC-Marijuana, OLLIE-Cocaine, OPI- Opiates, PCP-Phencyclidine, BZO-Benzodiazepines, OXY-Oxycodone. Observation. Detox Unit Care Protocol Mental Status Exam - Mental Status Exam Alert and Oriented to: Person Cognitive Function: Fair Patient Appearance: Unkempt Mood: Sad Affect: Flat Patient Behavior: Sedated Speech Pattern: Delayed Voice Loudness: Mildly Soft/Quiet Thought Process: Circumstantial, Goal Oriented Thought Disorder: Being Controlled Hallucinations: Denies Suicidal Ideation: Denies Homicidal Ideation: Denies Insight/Judgement: Fair Sleep: Difficulty falling asleep Appetite: Weight loss Muscle strength/Tone: Mild Hypotonicity Gait/Station: Shuffling Additional Comments: Observation. Detox Unit Care Protocol Psychiatric Findings - Problem List ([place] 1, 2,3) (1) PCP (phencyclidine) abuse Current Visit: Yes Status: Acute (2) Formication Current Visit: Yes Status: Acute (3) Opioid dependence with withdrawal Current Visit: Yes Status: Acute (4) Cannabis abuse, uncomplicated Current Visit: Yes Status: Chronic (5) Cocaine dependence Current Visit: Yes Status: Chronic Qualifiers: Substance use status: uncomplicated Qualified Code(s): F14.20 - Cocaine dependence, uncomplicated (6) Nicotine dependence Current Visit: Yes Status: Chronic Qualifiers: Nicotine product type: cigarettes Substance use status: in withdrawal Qualified Code(s): F17.213 - Nicotine dependence, cigarettes, with withdrawal (7) Substance induced mood disorder Current Visit: Yes Status: Suspected (8) Sedative abuse Current Visit: No Status: Acute (9) GERD (gastroesophageal reflux disease) Current Visit: No Status: Chronic Qualifiers: Esophagitis presence: without esophagitis Qualified Code(s): K21.9 - Gastro -esophageal reflux disease without esophagitis (10) Marijuana dependence Current Visit: No Status: Chronic - Initial Treatment Plan Initial Treatment Plan: Observation. Detox Unit Care Protocol
[2018-04-08] MEDS ORDERED: METHADONE HCL 10 MG TABLET (FOR DETOX USE ONLY) PO ONE (10:00)
[2018-04-08] MEDS: cloNIDine HCL 0.1 MG TABLET PO SCH ×2 (10:22→23:05)
[2018-04-08] MEDS: PRENATAL VITAMINS W/ FOLIC ACID TABLET (FP) PO SCH (10:22)
[2018-04-08] MEDS: NICOTINE 21 MG/24 HOURS TOPICAL PATCH TD SCH (10:22)
[2018-04-08 11:41] LABS: URINE APPEARANCE CLEAR; URINE BILIRUBIN NEGATIVE (<2.0 mg/dL); URINE COLOR STRAW; URINE GLUCOSE (UA) NEGATIVE (NEGATIVE); URINE KETONE NEGATIVE (NEGATIVE); URINE LEUK ESTERASE NEGATIVE (NEGATIVE); URINE NITRITE NEGATIVE (NEGATIVE); URINE PROTEIN NEGATIVE (NEGATIVE); URINE UROBILINOGEN NEGATIVE mg/dL (0.2-1.0)
--- NOTE | 2018-04-08 11:49 | PN ---
S COWS - Scale Resting Pulse: 1= [place] 81-100 Sweatin= Chills/Flushing Restless Observation: 3= Extraneous Movement Pupil Size: 1= Pupils >than Normal Bone or Joint Aches: 2= Severe Diffuse Aches Runny Nose/ Eye Tearin= Runny Nose/Eyes GI Upset > 30mins: 2= Nausea/Diarrhea Tremor Observation of Outstretched Hands: 2= Slight Tremor Visible Yawning Observation: 1= 1-2x During Session Anxiety or Irritability: 2=Irritable/Anxious Goose Flesh Skin: 0=Smooth Skin COWS Score: 17 S Progress Note (SOAP) Subjective: alert,irritable,anxious,interrupted sleep,tremor,pain in the body and back Objective: 04/08/18 11:48 Vital Signs Temperature 98.1 F 04/08/18 09:24 Pulse Rate 81 04/08/18 09:24 Respiratory Rate 18 04/08/18 09:24 Blood Pressure 137/70 04/08/18 09:24 O2 Sat by Pulse Oximetry (%) 04/08/18 11:48 Laboratory Last Values WBC 9.1 K/mm3 (4.0-10.0) 04/07/18 07:00 RBC 4.10 M/mm3 (4.00-5.60) 04/07/18 07:00 Hgb 11.8 GM/dL (11.7-16.9) 04/07/18 07:00 Hct 34.9 % (35.4-49) L 04/07/18 07:00 MCV 85.0 fl (80-96) 04/07/18 07:00 MCH 28.8 pg (25.7-33.7) 04/07/18 07:00 MCHC 33.9 g/dl (32.0-35.9) 04/07/18 07:00 RDW 14.4 % (11.9-15.9) 04/07/18 07:00 Plt Count 271 K/MM3 (134-434) 04/07/18 07:00 MPV 8.4 fl (7.5-11.1) 04/07/18 07:00 Sodium 137 mmol/L (136-145) 04/07/18 07:00 Potassium 4.3 mmol/L (3.5-5.1) 04/07/18 07:00 Chloride 102 mmol/L (98-107) 04/07/18 07:00 Carbon Dioxide 28 mmol/L (21-32) 04/07/18 07:00 Anion Gap 7 (8-16) L 04/07/18 07:00 BUN 18 mg/dL (7-18) 04/07/18 07:00 Creatinine 1.1 mg/dL (0.7-1.3) 04/07/18 07:00 Creat Clearance w eGFR > 60 (>60) 04/07/18 07:00 Random Glucose 94 mg/dL (74-106) 04/07/18 07:00 Calcium 9.8 mg/dL (8.5-10.1) 04/07/18 07:00 Total Bilirubin 0.2 mg/dL (0.2-1.0) 04/07/18 07:00 AST 12 U/L (15-37) L D 04/07/18 07:00 ALT 17 U/L (12-78) 04/07/18 07:00 Alkaline Phosphatase 82 U/L (45-117) 04/07/18 07:00 Total Protein 6.6 g/dl (6.4-8.2) 04/07/18 07:00 Albumin 3.4 g/dl (3.4-5.0) 04/07/18 07:00 RPR Titer Nonreactive (NONREACTIVE) 04/07/18 07:00 HIV 1&2 Antibody Screen Negative 04/07/18 07:00 HIV P24 Antigen Negative 04/07/18 07:00 Assessment: 04/08/18 11:48 withdrawal symptom Plan: continue detox
[2018-04-08] MEDS: THIAMINE HCL 100 MG TABLET (FP) PO SCH (23:05)
[2018-04-09] MEDS ORDERED: METHADONE HCL 5 MG TABLET (FOR DETOX USE ONLY) PO ONE (10:00)
[2018-04-09] MEDS: cloNIDine HCL 0.1 MG TABLET PO SCH ×2 (10:57→22:45)
[2018-04-09] MEDS: NICOTINE 21 MG/24 HOURS TOPICAL PATCH TD SCH (10:57)
[2018-04-09] MEDS: PRENATAL VITAMINS W/ FOLIC ACID TABLET (FP) PO SCH (10:57)
--- NOTE | 2018-04-09 11:30 | PN ---
[facility] Progress Note (SOAP) Subjective: alert,irritable,anxious,interrupted sleep,pain in the body Objective: 04/09/18 11:30 Vital Signs Temperature 98.1 F 04/09/18 10:29 Pulse Rate 82 04/09/18 10:29 Respiratory Rate 19 04/09/18 10:29 Blood Pressure 138/79 04/09/18 10:29 O2 Sat by Pulse Oximetry (%) Assessment: 04/09/18 11:30 withdrawal symptom Plan: continue detox
[2018-04-09] MEDS: THIAMINE HCL 100 MG TABLET (FP) PO SCH (22:45)
[2018-04-10 06:19] VITALS: TEMP 97.9
[2018-04-10 09:23] VITALS: BP 113/75; PULSE 73
--- NOTE | 2018-04-10 09:34 | PN ---
[facility] Progress Note (SOAP) Subjective: alert,irritable,anxious,interrupted sleep,tremor,pain in the body Objective: 04/10/18 09:33 Vital Signs Temperature 97.9 F 04/10/18 09:22 Pulse Rate 73 04/10/18 09:22 Respiratory Rate 18 04/10/18 09:22 Blood Pressure 113/75 04/10/18 09:22 O2 Sat by Pulse Oximetry (%) Assessment: 04/10/18 09:33 withdrawal symptom Plan: continue detox
--- NOTE | 2018-04-10 09:40 | DS ---
[facility] Detox Discharge Summary Admission Date: 04/06/18 Discharge Date: 04/10/18 - History Present History: Cannabis Dependence, Cocaine Dependence, Opioid Dependence Additional Comments: patient did not want to complete treatment due to family emergency,all attempts to convince patient to stay with no avail, signs release ama,risk of withdrawal and relapsing explained,advise to go to emergency room if medical emergency Pertinent Past History: nicotine dependence - Physical Exam Results Vital Signs: Vital Signs Temperature 97.9 F 04/10/18 09:22 Pulse Rate 73 04/10/18 09:22 Respiratory Rate 18 04/10/18 09:22 Blood Pressure 113/75 04/10/18 09:22 O2 Sat by Pulse Oximetry (%) Pertinent Admission Physical Exam Findings: withdrawal signs and symptom Laboratory Last Values WBC 9.1 K/mm3 (4.0-10.0) 04/07/18 07:00 RBC 4.10 M/mm3 (4.00-5.60) 04/07/18 07:00 Hgb 11.8 GM/dL (11.7-16.9) 04/07/18 07:00 Hct 34.9 % (35.4-49) L 04/07/18 07:00 MCV 85.0 fl (80-96) 04/07/18 07:00 MCH 28.8 pg (25.7-33.7) 04/07/18 07:00 MCHC 33.9 g/dl (32.0-35.9) 04/07/18 07:00 RDW 14.4 % (11.9-15.9) 04/07/18 07:00 Plt Count 271 K/MM3 (134-434) 04/07/18 07:00 MPV 8.4 fl (7.5-11.1) 04/07/18 07:00 Sodium 137 mmol/L (136-145) 04/07/18 07:00 Potassium 4.3 mmol/L (3.5-5.1) 04/07/18 07:00 Chloride 102 mmol/L (98-107) 04/07/18 07:00 Carbon Dioxide 28 mmol/L (21-32) 04/07/18 07:00 Anion Gap 7 (8-16) L 04/07/18 07:00 BUN 18 mg/dL (7-18) 04/07/18 07:00 Creatinine 1.1 mg/dL (0.7-1.3) 04/07/18 07:00 Creat Clearance w eGFR > 60 (>60) 04/07/18 07:00 Random Glucose 94 mg/dL (74-106) 04/07/18 07:00 Calcium 9.8 mg/dL (8.5-10.1) 04/07/18 07:00 Total Bilirubin 0.2 mg/dL (0.2-1.0) 04/07/18 07:00 AST 12 U/L (15-37) L D 04/07/18 07:00 ALT 17 U/L (12-78) 04/07/18 07:00 Alkaline Phosphatase 82 U/L (45-117) 04/07/18 07:00 Total Protein 6.6 g/dl (6.4-8.2) 04/07/18 07:00 Albumin 3.4 g/dl (3.4-5.0) 04/07/18 07:00 Urine Color Straw 04/08/18 08:00 Urine Appearance Clear 04/08/18 08:00 Urine pH 5.0 (5.0-8.0) 04/08/18 08:00 Ur Specific [place] 1.008 (1.001-1.035) 04/08/18 08:00 Urine Protein Negative (NEGATIVE) 04/08/18 08:00 Urine Glucose (UA) Negative (NEGATIVE) 04/08/18 08:00 Urine Ketones Negative (NEGATIVE) 04/08/18 08:00 Urine Blood Negative (NEGATIVE) 04/08/18 08:00 Urine Nitrite Negative (NEGATIVE) 04/08/18 08:00 Urine Bilirubin Negative (<2.0 mg/dL) 04/08/18 08:00 Urine Urobilinogen Negative mg/dL (0.2-1.0) 04/08/18 08:00 Ur Leukocyte Esterase Negative (NEGATIVE) 04/08/18 08:00 RPR Titer Nonreactive (NONREACTIVE) 04/07/18 07:00 HIV 1&2 Antibody Screen Negative 04/07/18 07:00 HIV P24 Antigen Negative 04/07/18 07:00 Vital Signs Temperature 97.9 F 04/10/18 09:22 Pulse Rate 73 04/10/18 09:22 Respiratory Rate 18 04/10/18 09:22 Blood Pressure 113/75 04/10/18 09:22 O2 Sat by Pulse Oximetry (%) - Medication Discharge Medications: Ambulatory Orders Cephalexin Monohydrate [Keflex -] 500 mg PO TID #21 capsule 02/27/18 - Diagnosis (1) Opioid dependence with withdrawal Current Visit: Yes Status: Acute (2) Cannabis abuse, uncomplicated Current Visit: Yes Status: Chronic (3) Cocaine dependence Current Visit: Yes Status: Chronic Qualifiers: Substance use status: uncomplicated Qualified Code(s): F14.20 - Cocaine dependence, uncomplicated (4) Nicotine dependence Current Visit: Yes Status: Chronic Qualifiers: Nicotine product type: cigarettes Substance use status: in withdrawal Qualified Code(s): F17.213 - Nicotine dependence, cigarettes, with withdrawal - AMA Did Patient Leave Against Medical Advice: Yes
[2018-04-10] MEDS ORDERED: METHADONE HCL 5 MG TABLET (FOR DETOX USE ONLY) PO ONE (10:00)
[2018-04-11] MEDS ORDERED: METHADONE HCL 10 MG TABLET (FOR DETOX USE ONLY) PO ONE (10:00)
[2018-04-12] MEDS ORDERED: METHADONE HCL 5 MG TABLET (FOR DETOX USE ONLY) PO ONE (06:00)
== END 2018-04-10 09:42 | disposition left against medical advice (07) | DRG 770 ==
LOC: YASAS 20:31 → Y6N 23:55
PROVIDERS: ADMIT Surgery; ATTEND Surgery
PROC: HZ2ZZZZ Detoxification Services for Substance Abuse Treatment (ICD-10-PCS; principal; 2018-04-06)
DX: F11.20 Opioid dependence, uncomplicated (principal); F14.20 Cocaine dependence, uncomplicated; F12.20 Cannabis dependence, uncomplicated; F16.10 Hallucinogen abuse, uncomplicated; F13.10 Sedative, hypnotic or anxiolytic abuse, uncomplicated; F17.213 Nicotine dependence, cigarettes, with withdrawal; F19.24 Other psychoactive substance dependence with psychoactive substance-induced mood disorder; R20.2 Paresthesia of skin; K21.9 Gastro-esophageal reflux disease without esophagitis
CPT/HCPCS: 36415; 80053; 81003; 85027; 86593; 87389; 93005; 93010